=== PATIENT | male | born 1955 ===

== ENCOUNTER 2024-03-29 08:00 | Outpatient (REF) | payer OTHER, SELFPAY ==
--- NOTE | ~2024-03-29 | XR_ITS ---
EXAMINATION: XR KNEE, LEFT Right knee CLINICAL INFORMATION: Pain in the left knee COMPARISON: None available. TECHNIQUE: AP upright of both knees. Additional lateral and patella view of the left knee. FINDINGS: Left knee: Genu varus Severe joint space narrowing medial compartment with near [id number] appearance and marginal osteophytes. Lateral compartment marginal osteophytes with slight widening likely related to the deformity Patellofemoral compartment marginal osteophytes and nonuniform joint space narrowing indicative of at least mild to moderate osteoarthritis. . Prominent arterial calcification Right knee limited AP upright: Medial lateral compartments normal. Arterial calcification noted. XR/XR knee LT 3V IMPRESSION: LEFT KNEE: Advanced osteoarthritis with genu varus. RIGHT KNEE: Calcific atherosclerotic disease.
== END 2024-03-29 08:01 | disposition home or self-care (01) ==
LOC: HO.HOSX 08:00
PROVIDERS: PCP Internal Medicine; Visit Provider Physician Assistant
DX: M17.12 Unilateral primary osteoarthritis, left knee (principal)
CPT/HCPCS: 73562

== ENCOUNTER 2024-03-29 08:00 | Outpatient (AMB) | payer OTHER, SELFPAY ==
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
[2024-03-29 08:26] VITALS: BMI 33.1
== END 2024-03-29 09:26 | disposition home or self-care (01) ==
PROVIDERS: PCP Internal Medicine; Visit Provider Physician Assistant
DX: M17.12 Unilateral primary osteoarthritis, left knee (principal)
CPT/HCPCS: 99203